=== PATIENT | female | born 1950 | race Two or more races ===

== ENCOUNTER 2019-05-02 17:27 | Emergency (ER) | payer OTHER, MEDICAID ==
[~2019-05-02] VITALS: Ht 170.2 cm; Wt 95.3 kg
[2019-05-02 17:43] VITALS: BP 171/79
== END 2019-05-02 21:02 | disposition left against medical advice (07) ==
LOC: ER 17:35
DX: R51 Headache (principal); Z53.21 Procedure and treatment not carried out due to patient leaving prior to being seen by health care provider